=== PATIENT | female | born 1970 | race Two or more races ===

== ENCOUNTER 2020-09-07 09:03 | Outpatient (CLI) | payer OTHER ==
[~2020-09-07 09:03] MED LIST: BUDEO.25; SORBUTUSS LIQU473 ML
== END 2020-09-07 11:36 | disposition home or self-care (01) ==
LOC: NUCLEAR 09:03
PROVIDERS: ATTEND Internal Medicine Cardiovascular Disease
DX: I11.9 Hypertensive heart disease without heart failure (principal)

== ENCOUNTER 2021-09-27 12:54 | Emergency (ER) | payer OTHER ==
[~2021-09-27] VITALS: Ht 160 cm; Wt 62.6 kg
== END 2021-09-27 18:51 | disposition home or self-care (01) ==
LOC: ER 12:54
DX: G44.209 Tension-type headache, unspecified, not intractable (principal); I10 Essential (primary) hypertension

== ENCOUNTER 2025-01-10 10:52 | Emergency (ER) | payer OTHER ==
[~2025-01-10] VITALS: Ht 160 cm; Wt 61.2 kg
[2025-01-10 13:47] LABS: HEMATOCRIT 40.5 % (36.0-45.00); HEMOGLOBIN 13.9 g/dL (12.0-15.00); MEAN CELL VOLUME 90.2 fL (80.00-100.00); MEAN CORPUSCULAR HGB CONC 34.4 g/dl (32.0-36.0); PLATELET COUNT 308 K/uL (150-450); RED BLOOD COUNT 4.49 M/uL (4.00-6.00); RED CELL DISTRIBUTION WIDTH 12.8 % (11.5-14.5)
[2025-01-10 14:54] LABS: ALBUMIN 4.1 gm/dL (3.4-5.0); BILIRUBIN TOTAL 0.55 mg/dL (0.3-1.2); CALCIUM 9.8 mg/dL (8.5-10.1); CREATININE SERUM 0.73 mg/dL (0.55-1.02); GFR 83.39; GLOBULINA 3.9 G/DL (2.4-3.5); POTASSIUM 4.61 mEq/L (3.5-5.1)
== END 2025-01-10 17:37 | disposition home or self-care (01) ==
LOC: ER 10:55
PROVIDERS: Preventive Medicine Public Health & General Preventive Medicine
DX: I11.0 Hypertensive heart disease with heart failure (principal)